=== PATIENT | female | born 2000 | race African-American/Black ===

== ENCOUNTER 2021-10-29 01:19 | Inpatient (IN) | payer MEDICAID ==
[~2021-10-29] VITALS: Ht 170.2 cm; Wt 109.2 kg
[~2021-10-29 01:19] MED LIST: ARIP2TAB27 PO; MIRT-89 PO; SERT-158 PO
[2021-10-29] MEDS ORDERED: PERTUSS(ACELL),DIPH,TET VAC/PF 0.5 ML SYRINGE IM. ONE (03:00)
[2021-10-29] MEDS ORDERED: SODIUM CHLORIDE 0.9% 250 ML IRRIG SOLUTION BOTTLE IRRIG ONE (03:00)
[2021-10-29 03:02] LABS: COVID AG,FIA SOURCE NASAL SWAB
[2021-10-29 03:09] LABS: BASOPHILS % (AUTO) 0.4 % (0.0-2.0); EOSINOPHILS % (AUTO) 3.1 % (1.0-6.0); HEMATOCRIT 36.4 % (36-46); HEMOGLOBIN 12.3 g/dL (12.0-16.0); LYMPHOCYTES # (AUTO) 2.4 K/uL (1.0-4.8); LYMPHOCYTES % (AUTO) 43.8 % (22.0-44.0); MEAN CORPUSCULAR HEMOGLOBIN 28.9 pg (26.0-34.0); MEAN CORPUSCULAR HGB CONC 33.9 G/dL (31.0-37.0); MEAN CORPUSCULAR VOLUME 85 fL (80-100); MONOCYTES # (AUTO) 0.4 K/uL (0.1-1.0); MONOCYTES % (AUTO) 7.3 % (2.0-9.0); NEUTROPHILS # (AUTO) 2.5 K/uL (1.8-7.7); NEUTROPHILS % (AUTO) 45.4 % (40.0-70.0); PLATELET COUNT (AUTO) 302 K/uL (150-450); RED BLOOD CELL COUNT(AUTO) 4.27 MIL/uL (4.00-5.20)
[2021-10-29 03:14] LABS: AMPHET/METH SCREEN,URINE NEGATIVE (NEGATIVE); BARBITURATE SCREEN, URINE NEGATIVE (NEGATIVE); BENZODIAZEPINES SCREEN,URINE NEGATIVE (NEGATIVE); CANNABINOID SCREEN,URINE NEGATIVE (NEGATIVE); COCAINE SCREEN,URINE NEGATIVE (NEGATIVE); METHADONE SCREEN, URINE NEGATIVE (NEGATIVE); OPIATE SCREEN,URINE NEGATIVE (NEGATIVE)
[2021-10-29 03:14] LABS: ANION GAP 9 mmol/L (8-16); CALCIUM, TOTAL 9.4 mg/dL (8.8-10.5); CARBON DIOXIDE 27 mmol/L (22-29); CHLORIDE 103 mmol/L (98-107); CREATININE 0.75 mg/dL (0.60-1.30); GLOMERULAR FILTR. RATE CALC > 60 mL/min (>60); GLUCOSE,RANDOM 92 mg/dL (70-110); POTASSIUM 4.1 mmol/L (3.5-5.1); SODIUM SERUM 139 mmol/L (136-145); UREA NITROGEN, BLOOD 8 mg/dL (7-18)
[2021-10-29 03:16] LABS: PHENCYCLIDINE SCREEN,URINE NEGATIVE (NEGATIVE)
[2021-10-29 03:29] LABS: ALANINE AMINOTRANSFERASE 15 U/L (12-78); ALBUMIN 3.8 g/dL (3.4-5.0); ALKALINE PHOSPHATASE 92 U/L (46-116); ASPARTATE AMINOTRANSFERASE 13 U/L (15-37); BILIRUBIN,TOTAL 0.2 mg/dL (0.1-1.0); HCG,QUANTITATIVE < 1 mIU/mL (0-6); TOTAL PROTEIN, SERUM 8.1 g/dL (6.4-8.2)
[2021-10-29] MEDS ORDERED: ONDANSETRON HCL 4 MG/2 ML VIAL IVP PRN (05:30)
[2021-10-29] MEDS: SODIUM CHLORIDE 0.9% 1,000 ML IV SCH (06:33)
[2021-10-29 07:49] LABS: THYROID STIMULATING HORMONE 3.61 uIU/mL (0.36-3.74)
[2021-10-29 08:24] VITALS: BP 118/79
[2021-10-29] MEDS ORDERED: PEG 3350/NA SULF,BICARB,CL/KCL 4000 ML SOLUTION PO ONE ×2 (08:45→11:30)
[2021-10-29 11:55] VITALS: BP 135/85
[2021-10-29] MEDS ORDERED: HEPARIN SODIUM,PORCINE 5,000 UNITS/ML VIAL SQ SCH (12:00)
[2021-10-29] MEDS: PANTOPRAZOLE SODIUM 40 MG/VIAL IVP SCH (12:01)
[2021-10-29] MEDS: QUEtiapine FUMARATE 25 MG TABLET PO SCH (12:14)
[2021-10-29 15:15] VITALS: BP 106/73
[2021-10-29 16:52] VITALS: BP 110/70
[2021-10-29] MEDS: RisperiDONE 4 MG TABLET PO SCH (21:36)
[2021-10-29] MEDS: TraZODone HCL 50 MG TABLET PO SCH (21:36)
[2021-10-29] MEDS: QUEtiapine FUMARATE 100 MG TABLET PO SCH (21:36)
[2021-10-29 21:45] VITALS: BP 117/66
[2021-10-30 06:00] VITALS: BP 105/52
[2021-10-30 07:57] VITALS: BP 129/80
[2021-10-30] MEDS: PANTOPRAZOLE SODIUM 40 MG/VIAL IVP SCH (09:48)
[2021-10-30] MEDS: QUEtiapine FUMARATE 25 MG TABLET PO SCH (09:48)
[2021-10-30 15:46] VITALS: BP 118/60
[2021-10-30 19:44] VITALS: BP 122/72
[2021-10-30] MEDS: QUEtiapine FUMARATE 100 MG TABLET PO SCH (19:52)
[2021-10-30] MEDS: RisperiDONE 4 MG TABLET PO SCH (19:52)
[2021-10-30] MEDS: TraZODone HCL 50 MG TABLET PO SCH (19:52)
[2021-10-30] MEDS: SODIUM CHLORIDE 0.9% 1,000 ML IV SCH (19:55)
[2021-10-31 04:48] VITALS: BP 111/71
[2021-10-31 07:56] VITALS: BP 133/88
[2021-10-31] MEDS: SODIUM CHLORIDE 0.9% 1,000 ML IV SCH ×2 (08:37→10:50)
[2021-10-31] MEDS: PANTOPRAZOLE SODIUM 40 MG/VIAL IVP SCH (08:39)
[2021-10-31] MEDS: QUEtiapine FUMARATE 25 MG TABLET PO SCH (08:39)
[2021-10-31] MEDS ORDERED: PEG 3350/NA SULF,BICARB,CL/KCL 4000 ML SOLUTION PO ONE (10:45)
[2021-10-31] MEDS: ETHYL ALCOHOL 62% ANTISEPTIC NASAL INHALANT 0.6 ML AMPUL NASAL SCH ×2 (13:08→22:49)
[2021-10-31 15:01] VITALS: BP 138/88
[2021-10-31] MEDS: RisperiDONE 4 MG TABLET PO SCH (22:48)
[2021-10-31] MEDS: QUEtiapine FUMARATE 100 MG TABLET PO SCH (22:48)
[2021-10-31] MEDS: TraZODone HCL 50 MG TABLET PO SCH (22:48)
[2021-11-01] MEDS: SODIUM CHLORIDE 0.9% 1,000 ML IV SCH ×3 (05:08→13:59)
[2021-11-01 07:43] VITALS: BP 124/75
[2021-11-01] MEDS: ETHYL ALCOHOL 62% ANTISEPTIC NASAL INHALANT 0.6 ML AMPUL NASAL SCH (09:00)
[2021-11-01] MEDS: QUEtiapine FUMARATE 25 MG TABLET PO SCH (09:14)
[2021-11-01] MEDS: PANTOPRAZOLE SODIUM 40 MG/VIAL IVP SCH (09:14)
[2021-11-01] MEDS ORDERED: RISP4TAB73 PO (12:35)
[2021-11-01] MEDS ORDERED: TRAZ-252 PO (12:37)
== END 2021-11-01 14:50 | disposition home or self-care (01) | DRG 254 ==
LOC: EDBD 01:19 → EMS 01:19 → 6N 06:22
PROVIDERS: ADMIT Internal Medicine; ATTEND Internal Medicine
DX: T18.9XXA Foreign body of alimentary tract, part unspecified, initial encounter (principal); F32.2 Major depressive disorder, single episode, severe without psychotic features; F25.1 Schizoaffective disorder, depressive type; T14.91XA Suicide attempt, initial encounter; X78.8XXA Intentional self-harm by other sharp object, initial encounter; E66.9 Obesity, unspecified; Z20.822 Contact with and (suspected) exposure to COVID-19; S51.812A Laceration without foreign body of left forearm, initial encounter; Y93.89 Activity, other specified; Y92.89 Other specified places as the place of occurrence of the external cause; Y99.8 Other external cause status; Z68.37 Body mass index [BMI] 37.0-37.9, adult
CPT/HCPCS: 74018; 74019; 74022; 74176; 80053; 84443; 84702; 85025; 87081; 90715; 99285; C9113; G0480; J7030; 36415-L1; 36415-TC